=== PATIENT | female | born 1945 | race Caucasian/White ===

== ENCOUNTER → 2018-03-02 | Outpatient (CLI) | payer MEDICARE, MEDICAID ==
[~2018-03-02] MED LIST: GLUCOVANCE 2.51 TAB PO; LASIX 20MG TABL20 MG PO; LIPITOR20 MG PO; NORVASC 10MG10 MG PO; SYNTHROID0.1 MG/TAB PO
== END ==
LOC: MC.RAD 13:12
DX: Z12.31 Encounter for screening mammogram for malignant neoplasm of breast (principal)

== ENCOUNTER 2019-02-25 14:29 | Outpatient (CLI) | payer MEDICARE ==
[~2019-02-25] VITALS: Ht 149.9 cm; Wt 51.2 kg
[2019-02-25 14:41] VITALS: BP 148/75; PULSE 101; TEMP 98
[2019-02-25] MEDS ORDERED: GLUCOPHAGE500 MG/TAB PO (15:45)
[2019-02-25] MEDS ORDERED: XANAX .25M0.25 MG/TA PO (15:47)
[2019-02-25] MEDS ORDERED: LOPRESSOR 550 MG/TAB PO (15:48)
[2019-02-25] MEDS ORDERED: REMERON 15M15 MG/TA1 PO (15:48)
[2019-02-25] MEDS ORDERED: PRINIVIL20 MG PO (15:49)
[2019-02-25] MEDS ORDERED: NEXIUM 40MG40 MG PO (15:50)
[2019-02-25] MEDS ORDERED: PRAVACHOL 40MG40 MG PO (15:50)
[2019-02-25] MEDS ORDERED: FOSAMAX 70MG TA70 MG PO (15:51)
[2019-02-25] MEDS ORDERED: PLAVIX 75MG TAB75 MG PO (15:51)
[2019-02-25] MEDS ORDERED: VENTOLIN0.09 MG IH (15:52)
[2019-02-25] MEDS ORDERED: INCRUSE ELPT INH 62. (15:53)
[2019-02-25] MEDS ORDERED: ARNUITY200 IH (15:53)
== END 2019-02-25 15:54 | disposition home or self-care (01) ==
LOC: EUO 14:29
DX: M81.0 Age-related osteoporosis without current pathological fracture (principal)
CPT/HCPCS: J3489

== ENCOUNTER 2019-06-03 14:37 | Inpatient (IN) | payer MEDICARE ==
[~2019-06-03] VITALS: Ht 149.9 cm; Wt 49.6 kg
[2019-06-03] VITALS (113 sets, daily range): BP systolic 131–187; BP diastolic 61–96; PULSE 60–88; TEMP 97.7–98.3; O2SAT 76–100
[~2019-06-03 14:37] MED LIST changes: +ARNUITY200 IH; +FOSAMAX 70MG TA70 MG PO; +GLUCOPHAGE500 MG/TAB PO; +INCRUSE EL62.5 MCG/A IH; +LOPRESSOR 550 MG/TAB PO; +NEXIUM 40MG40 MG PO; +PLAVIX 75MG TAB75 MG PO; +PRAVACHOL 40MG40 MG PO; +PRINIVIL20 MG PO; +REMERON 15M15 MG/TA1 PO; +VENTOLIN0.09 MG IH; +XANAX .25M0.25 MG/TA PO
[2019-06-03 14:49] LABS: BASO # 0.1 (0.0-0.2); BASO % 0.6 % (0.0-2.0); EOS # 0.1 (0.0-0.7); EOS % 1.2 % (0-4.0); GRAN # 5.4 (1.4-6.5); GRAN % 64.9 % (42.2-75.2); HEMOGLOBIN 12.9 g/dl (12.5-16.0); LYMPH % 23.7 % (20.0-51.0); MEAN CELL VOLUME 93 fl (80.0-100.0); MEAN CORPUSCULAR HEMOGLOBIN 33 pg (27.0-31.0); MEAN CORPUSCULAR HGB CONC 36 g/dl (33.0-37.0); MEAN PLATELET VOLUME 8.9 fl (7.4-10.4); MONO # 0.8 (0.1-0.6); MONO % 9.4 % (1.7-9.3); PLATELET COUNT 240 K/mm3 (130-400); RED BLOOD COUNT 3.89 M/mm3 (4.10-5.30); REDCELL DISTRIBUTION WIDTH-CV 12.1 % (11.5-14.5)
[2019-06-03 14:50] LABS: HEMATOCRIT 36.1 % (37.0-47.0)
[2019-06-03 14:53] LABS: INR 0.9 (0.8-3.0); PROTHROMBIN TIME 10.4 SECONDS (9.7-12.8)
[2019-06-03 14:58] LABS: ALANINE AMINOTRANSFERASE 13 U/L (9-52); ALBUMIN 4.7 gm/dL (3.5-5.0); ALKALINE PHOSPHATASE 43 U/L (50-136); ANION GAP 12 mmol/L (7-16); AST,SGOT 24 U/L (15-37); BILIRUBIN,TOTAL 0.5 mg/dL (0.0-1.0); BLOOD UREA NITROGEN 25 mg/dL (7-17); CALCIUM 10.3 mg/dL (8.4-10.2); CARBON DIOXIDE 27 mmol/L (22-30); CREATININE, serum 1.35 (0.52-1.25); GLUCOSE 156 mg/dL (74-106); POTASSIUM 4.5 mmol/L (3.4-5.0); SODIUM 123 mmol/L (137-145); TOTAL PROTEIN 7.2 gm/dL (6.4-8.2)
[2019-06-03 15:04] LABS: CHLORIDE 84 mmol/L (98-107)
[2019-06-03 15:16] LABS: TROPONIN-I < 0.012 ng/mL (0.000-0.035)
[2019-06-03] MEDS ORDERED: CATAPRES 0.1MG0.1 MG PO (18:09)
[2019-06-03] MEDS ORDERED: VENTOLIN0.09 MG IH (18:09)
[2019-06-03] MEDS ORDERED: HCTZ12.5TAB PO (18:11)
[2019-06-03] MEDS ORDERED: RECLAST5 MG/100 M IV (18:11)
[2019-06-03 18:31] LABS: PH 7 (5-8); SQUAMOUS EPITHELIAL 0-2 /hpf; URINE APPEARANCE Clear; URINE BACTERIA None Seen /hpf; URINE BILIRUBIN Negative (NEGATIVE); URINE BLOOD Negative (NEGATIVE); URINE COLOR Straw; URINE GLUCOSE Negative (NEGATIVE); URINE KETONE Negative (NEGATIVE); URINE LEUKOCYTE ESTERASE Negative (NEGATIVE); URINE NITRATE Negative (NEGATIVE); URINE PROTEIN(semi-quant) Negative (NEGATIVE); URINE RBC 0-2 /hpf; URINE UROBILINOGEN Negative (NEGATIVE); URINE WBC 0-2 /hpf
[2019-06-03 18:53] LABS: COLLECTION METHOD CLEAN CATCH
--- NOTE | 2019-06-03 19:48 | NUR ---
Pts coworker providing background, states Sancho had similar episode 2 weeks ago c L facial droop and expressive aphasia, three days later had milder form of this facial drooping and slurred speech, both episodes lasted less 15 min.
--- NOTE | 2019-06-03 20:00 | NUR ---
Patient assessed, vitals taken. Patient states that she is hungry, sandwich box ordered. Complains of some dizziness when standing. Patient is alert and oriented x3. Will continue to monitor.
[2019-06-04] VITALS (640 sets, daily range): BP systolic 101–220; BP diastolic 59–137; PULSE 60–95; TEMP 97.6–98.4; O2SAT 80–100
[2019-06-04 06:03] LABS: BASO % 0.6 % (0.0-2.0); EOS # 0.1 (0.0-0.7); EOS % 1.1 % (0-4.0); GRAN # 4.8 (1.4-6.5); GRAN % 65.5 % (42.2-75.2); HEMOGLOBIN 12.3 g/dl (12.5-16.0); LYMPH # 1.7 (1.2-3.4); LYMPH % 23.7 % (20.0-51.0); MEAN CELL VOLUME 94 fl (80.0-100.0); MEAN CORPUSCULAR HEMOGLOBIN 33 pg (27.0-31.0); MEAN CORPUSCULAR HGB CONC 35 g/dl (33.0-37.0); MEAN PLATELET VOLUME 9.3 fl (7.4-10.4); MONO # 0.6 (0.1-0.6); MONO % 8.8 % (1.7-9.3); PLATELET COUNT 227 K/mm3 (130-400); RED BLOOD COUNT 3.79 M/mm3 (4.10-5.30); REDCELL DISTRIBUTION WIDTH-CV 11.9 % (11.5-14.5)
[2019-06-04 06:05] LABS: HEMATOCRIT 35.5 % (37.0-47.0)
[2019-06-04 06:17] LABS: CALCIUM 9.3 mg/dL (8.4-10.2); CHOLESTEROL RISK RATIO 2.3; CREATININE, serum 1.11 (0.52-1.25); POTASSIUM 3.6 mmol/L (3.4-5.0)
--- NOTE | 2019-06-04 08:00 | NUR ---
PT A&O X4. PT WALKS WITH STANDBY ASSISTANCE TO TOILET. PT DENIES PAIN AND SOB.
--- NOTE | 2019-06-04 10:15 | NUR ---
PT TO MRI VIA WC.
--- NOTE | 2019-06-04 10:43 | NUR ---
SW attended clinical rounds. Patient will have an MRI to rule out a stroke. Hospitalist reports patient may transfer up to the floor pending MRI results. SW met with with patient and daughter, Destiny, after rounds. Patient lives independently at home here in [place]. Patient reports Destiny lives in [place] and Destiny reports patient does not have any "reliable" family in [place]. 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 Patient does not use any DME or home health services. Patient is independent with all ADLs. Patient does not have any advanced directives but patient and daughter are interested in completing a DPOA-HC. SW provided both DPOA-HC and Living Will. SW will follow up to witness signature. Patient will also be seen by PT/OT/ST for eval. SW will continue to follow.
[2019-06-04] MEDS ORDERED: GLUCOPHAGE500 MG/TAB PO (12:52)
--- NOTE | 2019-06-04 19:24 | NUR ---
REPORT GIVEN TO LACIE CORDOVA.
--- NOTE | 2019-06-04 19:48 | NUR ---
PT TO MEDICAL FLOOR VIA , RM 353. LACIE CORDOVA AWARE OF PTS ARRIVAL. CHART IN RACK. PTS PERSONAL BELONGINGS IN ROOM.
--- NOTE | 2019-06-04 21:00 | NUR ---
Transferred from ICU to medical floor- no requests, denies pain, o2 at 2L/nc, daughter in room with patient, No neuro deficits, alert/oriented, IV fluids at 60cc/hr, understands no free water, VSS- Up to bathroom with standby assist- understands to call for assistance-
[2019-06-05] VITALS (8 sets, daily range): BP systolic 168–235; BP diastolic 60–90; PULSE 68–92; TEMP 97.5–98.3
--- NOTE | 2019-06-05 06:06 | NUR ---
Has had a fairly quiet night- was not sleeping well so Ativan p.o given earlier this morning- Pt up to bathroom with standby assist- steady- B/P 170,s systolic, according to s notes trying to keep around 180 systolic-
[2019-06-05 06:40] LABS: BASO % 0.5 % (0.0-2.0); EOS # 0.1 (0.0-0.7); EOS % 1.2 % (0-4.0); GRAN # 4.3 (1.4-6.5); GRAN % 66.6 % (42.2-75.2); HEMOGLOBIN 11.3 g/dl (12.5-16.0); LYMPH # 1.5 (1.2-3.4); LYMPH % 22.7 % (20.0-51.0); MEAN CELL VOLUME 97 fl (80.0-100.0); MEAN CORPUSCULAR HEMOGLOBIN 33 pg (27.0-31.0); MEAN CORPUSCULAR HGB CONC 34 g/dl (33.0-37.0); MEAN PLATELET VOLUME 9.2 fl (7.4-10.4); MONO # 0.6 (0.1-0.6); MONO % 8.7 % (1.7-9.3); PLATELET COUNT 204 K/mm3 (130-400); RED BLOOD COUNT 3.44 M/mm3 (4.10-5.30); REDCELL DISTRIBUTION WIDTH-CV 12.5 % (11.5-14.5)
[2019-06-05 06:50] LABS: CALCIUM 8.6 mg/dL (8.4-10.2); POTASSIUM 3.8 mmol/L (3.4-5.0)
--- NOTE | 2019-06-05 07:00 | NUR ---
Report received from LACIE Tilley. In room standing at bedside. Denies needs, will continue to monitor.
[2019-06-05 07:17] LABS: HEMATOCRIT 33.3 % (37.0-47.0)
--- NOTE | 2019-06-05 10:43 | NUR ---
Assessment charted. Pt feeling well. Coughing often but nothing coming up. Refusing heparin and wants colace to be dc'd d/t soft stools. Denies pain. IVF to L A/C. Reviewed labs with family an patient. Denies needs, will continue to monitor.
[2019-06-05] MEDS ORDERED: PLAVIX 75MG TAB75 MG PO (12:42)
[2019-06-05] MEDS ORDERED: NICODERM C21 MG/PATC TD (12:42)
[2019-06-05] MEDS ORDERED: PRAVACHOL80 MG PO (12:43)
[2019-06-05] MEDS ORDERED: ZESTRIL40 MG PO (12:44)
--- NOTE | 2019-06-05 16:14 | NUR ---
1355 prior to discharge checked pt's BP and machine read 235/86 to TERRANCE. Manual BP captured and found 188/90. Dr. Fowler notified and cancelled the dishcarge, meds received and given to help lower BP and recheck in 1 hour. Rechecked at 1538 and found it to be 192/65. Will continue to monitor.
--- NOTE | 2019-06-05 17:38 | NUR ---
Pt resting in bed well at this time. Requested PRN medication for anxiety. Daughter bringing supper per her request. Denies pain. Will give bedside shift report to nightshift nurse who will resume care.
--- NOTE | 2019-06-05 20:30 | NUR ---
Initial shift assessment done- denies pain- states was hoping to go home but B/P was too high- Up in room, steady on feet, family/friend visiting at this time. Neuros with no deficits- does have a slight lisp/slur of speech but states that has been since she was a child-
[2019-06-06 00:30] VITALS: BP 185/75; PULSE 79; TEMP 98.1
--- NOTE | 2019-06-06 00:30 | NUR ---
B/P 185/75- Will give Hydralazine as ordered prn for SB/P >180. Pt states hasnt slept- anxious- will give Xanax po as ordered.
[2019-06-06 03:13] VITALS: BP 173/69; PULSE 72
--- NOTE | 2019-06-06 03:15 | NUR ---
B/P came down to 173/69 after Hydralazine 10mg IV
[2019-06-06 07:35] VITALS: BP 204/78; PULSE 84; TEMP 97.9
--- NOTE | 2019-06-06 08:10 | NUR ---
Received report. Met with patient, took medications. She is sitting on side of bed awaiting breakfast. Denies having any pain. Does say she wishes to shower sometime this morning, will let staff know when she is ready. Respirations are even and nonlabored, is noted to have dry cough. Blood pressure is elevated, PRN medication administerd along with new medication order.
[2019-06-06] MEDS ORDERED: NORVASC 10MG10 MG PO (11:02)
[2019-06-06 11:30] VITALS: BP 135/59; PULSE 72; TEMP 97.2
[2019-06-06 13:18] VITALS: BP 151/57; PULSE 77; TEMP 97.4
--- NOTE | 2019-06-06 14:21 | NUR ---
Discharge instructions reviewed with patient and daughter. Personal belongings taken to private vehicle by daughter. Patient assisted to wheelchair and assisted down to car.
== END 2019-06-06 14:20 | disposition home or self-care (01) | DRG 69 ==
LOC: COL.ER 14:37 → ICU 15:33 → MEDICAL 06-04 19:45
PROVIDERS: Emergency Medicine; Physician Assistant; ADMIT Internal Medicine
DX: G45.9 Transient cerebral ischemic attack, unspecified (principal); I16.1 Hypertensive emergency; E87.1 Hypo-osmolality and hyponatremia; E87.8 Other disorders of electrolyte and fluid balance, not elsewhere classified; E11.9 Type 2 diabetes mellitus without complications; E03.9 Hypothyroidism, unspecified; E78.5 Hyperlipidemia, unspecified; N28.9 Disorder of kidney and ureter, unspecified; J44.9 Chronic obstructive pulmonary disease, unspecified; F17.210 Nicotine dependence, cigarettes, uncomplicated; I65.21 Occlusion and stenosis of right carotid artery; R90.89 Other abnormal findings on diagnostic imaging of central nervous system; I10 Essential (primary) hypertension; F41.9 Anxiety disorder, unspecified; K21.9 Gastro-esophageal reflux disease without esophagitis; M19.90 Unspecified osteoarthritis, unspecified site; Z60.2 Problems related to living alone; Z79.84 Long term (current) use of oral hypoglycemic drugs; Z79.02 Long term (current) use of antithrombotics/antiplatelets; Z79.83 Long term (current) use of bisphosphonates; Z79.51 Long term (current) use of inhaled steroids; Z79.890 Hormone replacement therapy
CPT/HCPCS: 99223-AI; 99232-AI; 99233-AI; 99239; A9585; J0360; J1644; J1815; J7030; J7050

== ENCOUNTER → 2021-04-20 | Outpatient (CLI) | payer MEDICARE, MEDICAID ==
[~2021-04-20] MED LIST changes: +CATAPRES 0.1MG0.1 MG PO; +HCTZ12.5TAB PO; +NICODERM C21 MG/PATC TD; +PRAVACHOL80 MG PO; +RECLAST5 MG/100 M IV; +ZESTRIL40 MG PO
== END ==
LOC: COL.RAD 12:38
DX: Z12.2 Encounter for screening for malignant neoplasm of respiratory organs (principal); F17.210 Nicotine dependence, cigarettes, uncomplicated; R91.1 Solitary pulmonary nodule; R59.0 Localized enlarged lymph nodes

== ENCOUNTER 2021-05-08 14:25 | Outpatient (CLI) | payer MEDICARE, MEDICAID ==
[~2021-05-08] VITALS: Ht 149.9 cm; Wt 41.6 kg
[2021-05-08 15:35] VITALS: BP 129/65; PULSE 61; TEMP 97.5
== END 2021-05-08 16:40 | disposition home or self-care (01) ==
LOC: EUO 14:25
DX: M81.0 Age-related osteoporosis without current pathological fracture (principal)
CPT/HCPCS: J3489

== ENCOUNTER → 2021-05-29 | Outpatient (CLI) | payer MEDICARE, MEDICAID | LOC: MC.RAD 12:40 | DX: Z12.31 Encounter for screening mammogram for malignant neoplasm of breast (principal); N64.89 Other specified disorders of breast ==

== ENCOUNTER → 2021-06-01 | Outpatient (CLI) | payer MEDICARE, MEDICAID | LOC: MC.RAD 10:38 | DX: N64.89 Other specified disorders of breast (principal) ==

== ENCOUNTER 2022-05-20 16:36 | Inpatient (IN) | payer MEDICARE, MEDICAID ==
[~2022-05-20] VITALS: Ht 149.9 cm; Wt 50.3 kg
[2022-05-20] VITALS (328 sets, daily range): BP systolic 160; BP diastolic 76; PULSE 76; TEMP 97.8; O2SAT 82–100
[2022-05-20 17:13] LABS: BASO # 0.1 K/mm3 (0.0-0.2); BASO % 0.8 % (0.0-2.0); EOS % 0.3 % (0.0-4.0); GRAN # 4.8 K/mm3 (1.4-6.5); GRAN % 72.9 % (42.2-75.2); HEMOGLOBIN 12.1 g/dl (12.5-16.0); LYMPH # 0.9 K/mm3 (1.2-3.4); LYMPH % 14.2 % (20.0-51.0); MEAN CELL VOLUME 86 fl (80.0-100.0); MEAN CORPUSCULAR HEMOGLOBIN 32 pg (27-31); MEAN CORPUSCULAR HGB CONC 37 g/dl (33.0-37.0); MEAN PLATELET VOLUME 9.1 fl (7.4-10.4); MONO # 0.8 K/mm3 (0.1-0.6); MONO % 11.5 % (1.7-9.3); PLATELET COUNT 306 K/mm3 (130-400); RED BLOOD COUNT 3.77 M/mm3 (4.10-5.30); REDCELL DISTRIBUTION WIDTH-CV 11.6 % (11.5-14.5)
[2022-05-20 17:14] LABS: HEMATOCRIT 32.4 % (37.0-47.0)
[2022-05-20 17:30] LABS: ALBUMIN 4.5 gm/dL (3.4-4.8); BILIRUBIN,TOTAL 0.2 mg/dL (0.2-1.2); CALCIUM 9.5 mg/dL (8.4-10.2); CREATININE, serum 2.78 mg/dL (0.57-1.11); POTASSIUM 4.6 mmol/L (3.5-4.5); TOTAL PROTEIN 6.9 gm/dL (6.2-8.1)
--- NOTE | 2022-05-20 19:15 | NUR ---
Received report from LACIE Stone, and LACIE Moncada.
--- NOTE | 2022-05-20 19:30 | NUR ---
Patient resting quietly in bed. Patient's daughter is at the bedside. Patient is alert and oriented; all vitals within normal limits. She reports a mild headache but otherwise denies any pain or discomfort. PRN Tylenol recently administered. IVF infusing; no other medications or drips running at this time.
[2022-05-20 19:35] LABS: COLLECTION METHOD CLEAN CATCH
[2022-05-20 19:50] LABS: URINE BACTERIA Rare /hpf (NONE SEEN); URINE RBC 0-2 /hpf (0-2)
[2022-05-20 19:56] LABS: URINE APPEARANCE Clear (CLEAR/HAZY); URINE BLOOD Negative (NEGATIVE); URINE COLOR Yellow (YELLOW); URINE GLUCOSE Negative (NEGATIVE); URINE KETONE Negative (NEGATIVE); URINE NITRATE Negative (NEGATIVE); URINE PROTEIN(semi-quant) Negative (NEGATIVE); URINE UROBILINOGEN 0.2 E.U/dL (0.2-1.0)
[2022-05-20 20:49] LABS: OSMOLALITY-URINE random 209 Osm/kg (50-1200)
[2022-05-21] VITALS (1048 sets, daily range): BP systolic 119–168; BP diastolic 55–87; PULSE 68–75; TEMP 98–99.1; O2SAT 76–100
--- NOTE | 2022-05-21 04:51 | NUR ---
Patient has been rather restless throughout NOC. Patient is pleasant with staff but has complained of headache intermittently with an inability to fall asleep. Hospitalist, Coral, notified early in shift. Orders received for PRN benadryl and tylenol, which were administered according to orders. Patient then stated she had an upset stomach with slight nausea, and she still complained of restlessness. Orders received for IV phenergan. Despite the above medication administration, patient's pressures began increasing, SBPs ranging 160-180, and restlessness persisted. Patient's med rec indicates she takes remeron and xanax at bedtime; orders were received for PO ativan and to resume remeron. One hour after remeron and ativan administration, patient is still exhibiting restlessness, evidenced by SBP in 180s, with frequent calls for staff assistance. A second dose of PO ativan administered according to orders as well as a dose of tylenol for her headache. Throughout NOC, patient has called to void 2-3+ times per hour with urgency. Coral aware. She is continent of urine. Discussed possibly using purewick external catheter with patient, but she does not believe that would improve her comfort level.
[2022-05-21 06:34] LABS: BASO # 0.1 K/mm3 (0.0-0.2); BASO % 1.3 % (0.0-2.0); GRAN # 4.2 K/mm3 (1.4-6.5); GRAN % 75.5 % (42.2-75.2); HEMOGLOBIN 12.1 g/dl (12.5-16.0); LYMPH # 0.7 K/mm3 (1.2-3.4); LYMPH % 11.7 % (20.0-51.0); MEAN CORPUSCULAR HEMOGLOBIN 32 pg (27-31); MEAN CORPUSCULAR HGB CONC 35 g/dl (33.0-37.0); MEAN PLATELET VOLUME 9.1 fl (7.4-10.4); MONO # 0.6 K/mm3 (0.1-0.6); PLATELET COUNT 273 K/mm3 (130-400); REDCELL DISTRIBUTION WIDTH-CV 11.9 % (11.5-14.5)
[2022-05-21 06:37] LABS: HEMATOCRIT 34.4 % (37.0-47.0)
[2022-05-21 06:39] LABS: MEAN CELL VOLUME 91 fl (80.0-100.0)
[2022-05-21 06:48] LABS: ALBUMIN 3.8 gm/dL (3.4-4.8); CREATININE, serum 2.03 mg/dL (0.57-1.11); MAGNESIUM 1.4 mg/dL (1.6-2.6); PHOSPHOROUS 3.3 mg/dL (2.3-4.7); POTASSIUM 4.1 mmol/L (3.5-4.5)
--- NOTE | 2022-05-21 08:30 | NUR ---
PT ASSESSMENT COMPLETED AT THIS TIME. VSS. PATIENT ALERT AND ORIENTED. PT ADJUSTED IN BED. CALL LIGHT WITHIN REACH.
--- NOTE | 2022-05-21 12:53 | NUR ---
PT COMPLAINS OF HEADACHE. PAIN RATING A 5 ON THE NUMERIC SCALE. ADMINISTERD PRN TYLENOL PER ORDER. WILL RECHECK PAIN LEVEL.
--- NOTE | 2022-05-21 14:00 | NUR ---
PTS HEADACHE REASSESSED. PT STATES THAT PAIN HAS DECREASED TO A 2.
--- NOTE | 2022-05-21 14:52 | NUR ---
washtub worker helper met with patient to complete initial assessment. Patient states that she lives alone and has been independent with all of her activities of daily living. Patient's primary care provider is Dr Martinez and patient confirms that she has Medicare A/B and Medicaid. Patient states she has minimal copays for prescriptions. Patient states that she has advance directives and that her daughter, Destiny Eugene #[phone] is her power of patent prosecution attorney. Patient plans to return home upon discharge.
--- NOTE | 2022-05-21 15:44 | NUR ---
hoist worker met with patient and daughter, Destiny Eugene [phone], as physical therapy recommends post acute rehab. Worker provided the Medicare.gov/share option list for alf facilities. Patient chose 1. [facility] [place] and is agreeable to referrals to [facility]. [facility] does not have an opening at this time. Worker gave referrals to above facilities which included faxed clinicals. Patient and daughter plan for short term skilled care to return home.
--- NOTE | 2022-05-21 19:29 | NUR ---
PATIENT TRANSPORTED BY STRETCHER TO ROOM 354. MET TREY RN IN ROOM FOR TRANSFER..
[2022-05-22 00:29] VITALS: BP 115/48; PULSE 57; TEMP 97.9
--- NOTE | 2022-05-22 02:22 | NUR ---
Tx given via mouthpiece, tolerated well.
[2022-05-22 05:22] VITALS: BP 135/53; PULSE 74; TEMP 98.5
[2022-05-22 06:46] LABS: ALBUMIN 3.1 gm/dL (3.4-4.8); CALCIUM 8.5 mg/dL (8.4-10.2); CREATININE, serum 1.37 mg/dL (0.57-1.11); MAGNESIUM 1.8 mg/dL (1.6-2.6); PHOSPHOROUS 2.6 mg/dL (2.3-4.7)
[2022-05-22 08:00] VITALS: BP 153/61; PULSE 74; TEMP 98.6
--- NOTE | 2022-05-22 08:36 | NUR ---
Pt assessment complete. Pt is sitting up in bed upon entry, she is A/O x4. Her breathing is even and unlabored on 3L o2 via NC. Pt denies SOB, reports she does not typically wear oxygen. See assessment for lung sounds. Denies any pain. Discussed ambulation with patient, she is in agreeance. No needs at this time. Call light within reach.
[2022-05-22 11:08] VITALS: BP 131/45; PULSE 76; TEMP 97.3
[2022-05-22 15:40] VITALS: BP 129/51; PULSE 70; TEMP 97.7
--- NOTE | 2022-05-22 16:53 | NUR ---
Traveling Crane Operator faxed clinical updates to [facility]. Both can accept. SW met with patient who advised she would like to consider returning home with HH and having her daughter stay with her. JOSE followed up with patient's daughter, Destiny who advised she may be able to do this, however she has to get approval from her boss. Destiny does not want SNF to be taken off the table at this point. JOSE advised Destiny a Medicare.gov list of HH agencies was left in patient's room with patient if they decide on this route. Discharge Plan:SNF vs HH
--- NOTE | 2022-05-22 17:59 | NUR ---
Pt reported intermittent headache through the day, improved with Tylenol. Up to the chair for part of the day. No needs at this time. Call light within reach.
--- NOTE | 2022-05-22 19:40 | NUR ---
Tx given via mouthpiece, tolerated well.
--- NOTE | 2022-05-22 20:23 | NUR ---
PT C/O FRONTAL HANSEN. SEE MAR FOR TYLENOL GIVEN. ASSISTED TO BR. VOIDED WITH BM. BACK TO BED. CALL LIGHT IN REACH. BED ALARM SET.
[2022-05-22 20:44] VITALS: BP 166/61; PULSE 73; TEMP 97.8
--- NOTE | 2022-05-22 21:30 | NUR ---
UP IN CHAIR. CALL LIGHT IN REACH.
[2022-05-23] VITALS (7 sets, daily range): BP systolic 154–183; BP diastolic 55–85; PULSE 42–77; TEMP 97.5–98.6
--- NOTE | 2022-05-23 00:33 | NUR ---
gave xanax for anxiety and sleep.
[2022-05-23 06:59] LABS: ALBUMIN 3.2 gm/dL (3.4-4.8); CALCIUM 8.8 mg/dL (8.4-10.2); CREATININE, serum 0.9 mg/dL (0.57-1.11); MAGNESIUM 1.6 mg/dL (1.6-2.6); PHOSPHOROUS 1.8 mg/dL (2.3-4.7); POTASSIUM 4.7 mmol/L (3.5-4.5)
--- NOTE | 2022-05-23 07:55 | NUR ---
VSS, PT A&O X4, PT ABLE TO MAKE NEEDS KNOWN, PT RESTING IN BED, FALL PRECAUTIONS IN PLACE, CALL LIGHT IN REACH
--- NOTE | 2022-05-23 11:38 | NUR ---
PT WEANED TO 2L NC AND TOLERATING WITH OXYGEN SATURATION 90-91%
--- NOTE | 2022-05-23 13:51 | NUR ---
[employer] faxed clinical updates to [facility] and [facility]. SW attended clinical rounds with the team and patient may discharge tomorrow. Patient does not want to go to SNF and plans to return home with support from her daughter, Destiny who is at bedside. Destiny advised she worked out a plan with her employer and she plans to stay with patient. SW invited patient and Destiny to review Medicare.gov list of agencies. Patient will also need a FWW and would like it ordered at [facility]. Patient would like to be notified if her walker is covered or not, because if it's not covered, she may just rent or borrow one. JOSE contacted Tone at [facility] and faxed referral with order for FWW. JOSE also updated Linus at [facility] and Mindi at [facility] on discharge. Discharge Plan: Home with Home Health
--- NOTE | 2022-05-23 21:38 | NUR ---
PATIENT REFUSES IV AND STATES I GOING HOME IN AM, ANXIOUS, TRIED TO SOOTH, PATIENT ASKIN FOR A FEMALE NURSE, IS ANXIOUS PROVIDER NOTIFIED, CHARGE NURSE NOTIFIED,
[2022-05-24 03:21] VITALS: BP 176/67; PULSE 74; TEMP 98.6
[2022-05-24 06:36] LABS: BASO # 0.1 K/mm3 (0.0-0.2); BASO % 0.9 % (0.0-2.0); EOS # 0.1 K/mm3 (0.0-0.7); EOS % 1.9 % (0.0-4.0); GRAN # 4.9 K/mm3 (1.4-6.5); GRAN % 66.3 % (42.2-75.2); HEMOGLOBIN 11.5 g/dl (12.5-16.0); LYMPH # 1.6 K/mm3 (1.2-3.4); LYMPH % 20.9 % (20.0-51.0); MEAN CELL VOLUME 93 fl (80.0-100.0); MEAN CORPUSCULAR HEMOGLOBIN 31 pg (27-31); MEAN CORPUSCULAR HGB CONC 34 g/dl (33.0-37.0); MEAN PLATELET VOLUME 9.4 fl (7.4-10.4); MONO # 0.7 K/mm3 (0.1-0.6); MONO % 9.7 % (1.7-9.3); PLATELET COUNT 296 K/mm3 (130-400); RED BLOOD COUNT 3.68 M/mm3 (4.10-5.30); REDCELL DISTRIBUTION WIDTH-CV 12.2 % (11.5-14.5)
[2022-05-24 06:41] LABS: HEMATOCRIT 34.1 % (37.0-47.0)
[2022-05-24 06:47] LABS: ALBUMIN 3.4 gm/dL (3.4-4.8); CALCIUM 9.4 mg/dL (8.4-10.2); CREATININE, serum 0.83 mg/dL (0.57-1.11); MAGNESIUM 1.5 mg/dL (1.6-2.6); PHOSPHOROUS 2.2 mg/dL (2.3-4.7); POTASSIUM 4.9 mmol/L (3.5-4.5)
[2022-05-24 07:30] VITALS: BP 177/66; PULSE 70; TEMP 98
--- NOTE | 2022-05-24 11:07 | NUR ---
PT UP TO RECLINER WITH THERAPY AFTER SHOWERING WITH OT. PHYSICIAN ROUNDED ON PT. CONVERTED MEDS TO PO FROM IV RE: PATIENT PULLED OUT IV AND REFUSING TO HAVE ANOTHER ONE PLACED.
[2022-05-24] MEDS ORDERED: MONODOX100 PO (11:32)
[2022-05-24] MEDS ORDERED: MAG-OX 400400 MG/TAB PO (11:33)
--- NOTE | 2022-05-24 14:14 | NUR ---
DISCHARGE INSTSRUCTIONS REVIEWED WITH PT AND DAUGHTER. QUESTIONS SOLICITED AND ANSWERED. PT LEFT FLOOR PER WHEEL CHAIR WITH STAFF.
--- NOTE | 2022-05-24 15:10 | NUR ---
[employer] Division Chief attended clinical rounds with the team. Patient is ready for discharge today. JOSE met with patient and patient's daughter, Destiny to discuss discharge plan. Patient selected [facility]. JOSE advised that she spoke with Glenys at [facility] and patient's walker was approved by insurance and will be delivered this morning. JOSE contacted Julius at [facility] and faxed referral. Julius advised they will be able to accept. Discharge Plan: Home with [facility]
== END 2022-05-24 14:10 | disposition home health service (06) | DRG 682 ==
LOC: COL.ER 16:36 → ICU 17:14 → MEDICAL 05-21 19:28
PROVIDERS: Family Medicine; Hospitalist; ADMIT Internal Medicine
DX: N17.9 Acute kidney failure, unspecified (principal); J96.01 Acute respiratory failure with hypoxia; E87.1 Hypo-osmolality and hyponatremia; L03.116 Cellulitis of left lower limb; L03.115 Cellulitis of right lower limb; E46 Unspecified protein-calorie malnutrition; E87.0 Hyperosmolality and hypernatremia; Z68.1 Body mass index [BMI] 19.9 or less, adult; Z66 Do not resuscitate; J44.9 Chronic obstructive pulmonary disease, unspecified; F41.9 Anxiety disorder, unspecified; K21.9 Gastro-esophageal reflux disease without esophagitis; E03.9 Hypothyroidism, unspecified; M19.90 Unspecified osteoarthritis, unspecified site; E78.5 Hyperlipidemia, unspecified; F17.210 Nicotine dependence, cigarettes, uncomplicated; E86.0 Dehydration; I12.9 Hypertensive chronic kidney disease with stage 1 through stage 4 chronic kidney disease, or unspecified chronic kidney disease; E11.22 Type 2 diabetes mellitus with diabetic chronic kidney disease; N18.9 Chronic kidney disease, unspecified; I95.9 Hypotension, unspecified; Z87.01 Personal history of pneumonia (recurrent); Z90.710 Acquired absence of both cervix and uterus; Z88.0 Allergy status to penicillin; Z88.8 Allergy status to other drugs, medicaments and biological substances; Z72.89 Other problems related to lifestyle; Z79.01 Long term (current) use of anticoagulants; Z86.73 Personal history of transient ischemic attack (TIA), and cerebral infarction without residual deficits; Z79.890 Hormone replacement therapy; Z23 Encounter for immunization
CPT/HCPCS: J1644; J1815; J2550; J3370; J3475; J7030; J7050

== ENCOUNTER 2024-05-10 16:00 | Emergency (ER) | payer MEDICARE, MEDICAID ==
[~2024-05-10] VITALS: Ht 149.9 cm; Wt 40.9 kg
[~2024-05-10 16:00] MED LIST changes: +ACTONEL150 MG PO; +ALBUTEROL0.83 MG/ML IH; +BREZTRI AEROS10.7 GM IH; +ELIQUIS 2.5 PO; +ELIQUIS 5MG PO; +MAG-OX 400400 MG/TAB PO; +MONODOX100 PO; +MUCUS RELIEF400 M1 PO; +NEURONTIN100 MG/CAP PO; +PACERONE400 MG PO; +PROTONIX 40MG T40 MG PO; +SODIUM CHLORI1000 M4 PO; +SYNTHROID0.05 MG/TA PO
[2024-05-10 16:03] VITALS: TEMP 98.2
[2024-05-10 19:32] LABS: BASO # 0.1 K/mm3 (0.0-0.2); BASO % 0.3 % (0.0-2.0); EOS # 0.1 K/mm3 (0.0-0.7); EOS % 0.8 % (0.0-4.0); GRAN # 10.6 K/mm3 (1.4-6.5); GRAN % 73.4 % (42.2-75.2); HEMATOCRIT 44.6 % (37.0-47.0); HEMOGLOBIN 14.7 g/dl (12.5-16.0); LYMPH # 2.8 K/mm3 (1.2-3.4); LYMPH % 19.5 % (20.0-51.0); MEAN CELL VOLUME 90 fl (80.0-100.0); MEAN CORPUSCULAR HEMOGLOBIN 30 pg (27-31); MEAN CORPUSCULAR HGB CONC 33 g/dl (33.0-37.0); MEAN PLATELET VOLUME 8.6 fl (7.4-10.4); MONO # 0.8 K/mm3 (0.1-0.6); MONO % 5.2 % (1.7-9.3); PLATELET COUNT 363 K/mm3 (130-400); RED BLOOD COUNT 4.97 M/mm3 (4.10-5.30); REDCELL DISTRIBUTION WIDTH-CV 13.9 % (11.5-14.5)
[2024-05-10 19:49] LABS: ALBUMIN 4.6 g/dL (3.4-4.8); BILIRUBIN,TOTAL 0.4 mg/dL (0.2-1.2); CALCIUM 10.2 mg/dL (8.4-10.2); CREATININE, serum 1.54 mg/dL (0.57-1.11); POTASSIUM 4.3 mEq/L (3.5-4.5); TOTAL PROTEIN 8.4 g/dl (6.2-8.1)
[2024-05-10] MEDS ORDERED: NS 1,000 ML IV ONE (20:00)
[2024-05-10] MEDS ORDERED: Iodixanol-320 100 ML BOTTLE IV ONE (20:12)
[2024-05-10] MEDS ORDERED: NS 100 ML IV ONE (20:13)
[2024-05-10 21:32] VITALS: BP 171/78; PULSE 82
[2024-05-21] MEDS ORDERED: PACERONE200 MG PO (12:36)
[2024-05-21] MEDS ORDERED: NORVASC 5MG5 MG/TAB PO (12:37)
[2024-05-21] MEDS ORDERED: LASIX 20MG TABL20 MG PO (12:39)
[2024-05-21] MEDS ORDERED: MUCINEX 60600 MG/TA1 PO (12:41)
[2024-05-21] MEDS ORDERED: SYNTHROID0.05 MG/TA PO (12:42)
[2024-05-21] MEDS ORDERED: GLUCOPHAGE XR500 M1 PO (12:43)
[2024-05-21] MEDS ORDERED: PRAVACHOL 40MG40 MG PO (12:45)
== END 2024-05-10 21:32 | disposition home or self-care (01) ==
LOC: COL.ER 16:00
PROVIDERS: Nurse Practitioner Primary Care
DX: K52.9 Noninfective gastroenteritis and colitis, unspecified (principal); M79.89 Other specified soft tissue disorders; J98.11 Atelectasis; F17.210 Nicotine dependence, cigarettes, uncomplicated; Z99.81 Dependence on supplemental oxygen
CPT/HCPCS: J7030; Q9967

== ENCOUNTER → 2024-05-11 | Outpatient (CLI) | payer MEDICARE, MEDICAID | LOC: COL.RAD 05:12 | DX: M71.22 Synovial cyst of popliteal space [Baker], left knee (principal); I70.292 Other atherosclerosis of native arteries of extremities, left leg ==

== ENCOUNTER → 2024-05-21 | Outpatient (CLI) | payer MEDICARE ==
[~2024-05-21] VITALS: Ht 149.9 cm; Wt 43.9 kg
[~2024-05-21] MED LIST changes: +GLUCOPHAGE XR500 M1 PO; +MUCINEX 60600 MG/TA1 PO; +NORVASC 5MG5 MG/TAB PO; +PACERONE200 MG PO; +Triamcinolone 40 MG/ML 1 ML VIAL IJ SCH
[2024-05-21 12:48] VITALS: BP 148/61; PULSE 68; TEMP 97.8
[2024-05-21 13:40] VITALS: BP 147/64; PULSE 71
== END ==
LOC: COL.RAD 11:57
DX: M48.062 Spinal stenosis, lumbar region with neurogenic claudication (principal)
CPT/HCPCS: J0665; J3301

== ENCOUNTER → 2024-06-17 | Outpatient (CLI) | payer MEDICARE, MEDICAID ==
[~2024-06-17] MED LIST changes: -Triamcinolone 40 MG/ML 1 ML VIAL IJ SCH
== END ==
LOC: COL.RAD 15:33 → EDSTATUS 15:49 → COL.RAD 15:51
DX: M16.12 Unilateral primary osteoarthritis, left hip (principal); R18.8 Other ascites; J90 Pleural effusion, not elsewhere classified